=== PATIENT | female | born 2005 | race African-American/Black ===

== ENCOUNTER 2023-03-06 10:55 | Outpatient (CLI) | payer OTHER, SELFPAY ==
--- NOTE | 2023-03-06 11:32 | ECG_ITS ---
Measurements Intervals [place] Rate: 50 P: 38 AK: 176 QRS: 59 QRSD: 86 T: 39 QT: 436 QTc: 400 Interpretive Statements SINUS BRADYCARDIA WITH SINUS ARRHYTHMIA POSSIBLE RIGHT VENTRICULAR CONDUCTION DELAY [RSR (QR) IN V1/V2] NO PREVIOUS ECG AVAILABLE FOR COMPARISON Electronically Signed On 03-06-2023 11:52:20 CDT by Amanda Milian M.D.
== END 2023-03-06 10:56 | disposition home or self-care (01) ==
DX: R00.2 Palpitations (principal); R00.1 Bradycardia, unspecified; R55 Syncope and collapse
CPT/HCPCS: 93005

== ENCOUNTER 2023-10-14 01:55 | Day surgery (SDC) | payer OTHER, SELFPAY ==
[2023-10-10 12:00] VITALS: BMI 27.6
--- NOTE | 2023-10-10 12:04 | PC.NURSE ---
Report to the Outpatient Waiting Room, entrance under the green pavilion located off [facility], at time 0730 on date 10/14/23. Planned Procedure Time: 0930. Time changes happen often and if your time is changed the preop area will call you the afternoon before. - You and your visitor will be asked to self-screen and do not enter if you have any COVID symptoms. - A mask is optional within the hospital at this time. Patients may have clear liquids (water, carbonated beverages, clear teas, apple juice) until 3 hours prior to surgery with a maximum of 20 ounces. - No food from midnight until time of surgery Take the following medications with a SIP of water the morning of surgery: N/A DO NOT STOP ANY OF YOUR OTHER PRESCRIPTION MEDICATIONS PRIOR TO SURGERY ?EXCEPT THE FOLLOWING Medications to discontinue per physician: N/A Date to take last dose: N/A Please no make-up, nail croatian, hairspray, perfume, deodorant, or body powder the day of surgery. No jewelry (including any body piercings) or valuables the day of surgery, leave them at home. Please take a shower or bath the night before, or the morning of, surgery with an antibacterial soap. Wear comfortable, loose fitting clothing. - Jewelry must be removed prior to entering the operating room. Rings and piercings that are not removed may be cut off. - The hospital will not accept responsibility for valuables. - Please leave all valuables, including medications, at home the day of surgery. If you are going home after surgery, a licensed screw driver operator must drive you home. - NO public transportation without another adult if you receive anesthesia. - We recommend that an adult stay with you for 24 hours following discharge. - We also recommend that you do not drive, make important decision, drink alcoholic beverages, or take any drugs that were not prescribed by your health care provider for at least 24 hours after your discharge time. Follow any additional instructions given to you from your surgeon. If you or anyone in your household have experienced Covid symptoms in the past week, please notify your surgeon or the nurse liaison at the phone number below for possible testing. Telephone instructions given to KATI LOREDO and asked if any additional questions and then verbalized understanding. Patient advised to call surgeon office or pre surgery nurse liaison [phone] if any additional questions.
[2023-10-14] VITALS (10 sets, daily range): BP systolic 101–119; BP diastolic 62–86; PULSE 41–55; RESP 14–16; TEMP 36.2–36.5; O2SAT 99–100; BMI 27.6
--- NOTE | 2023-10-14 08:18 | WPDANESEPPF ---
Anes - Initial Pre Proc Eval Procedure: Operation Date: 10/14/23 09:30 Proposed Procedures p Labiaplasty - Jensen Day MD Date/Time: 10/14/23 08:18 Surgeon: Jensen Day MD Pre Op Diagnosis: Vulvar Cyst Patient Data Age: 18 Gender: F Height: 1.83 m Weight: 92.55 kg Last Vital Signs Temp 97.7 F 10/14/23 08:11 Pulse 55 L 10/14/23 08:11 Resp 16 10/14/23 08:11 BP 114/62 10/14/23 08:11 Pulse Ox 100 10/14/23 08:11 O2 Del Method Room Air 10/14/23 08:11 Allergies Allergy/AdvReac Type Severity Reaction Status Date / Time No Known Allergies Allergy Verified 10/14/23 08:09 Home Medications Medication Instructions Recorded Confirmed Type No Home Medications 10/10/23 10/14/23 History Patient hx anesthesia problems: none Family hx anesthesia problems: none Results Review: All pre-operative results and documents have been reviewed as part of the pre-operative evaluation. [facility] Social History Social History Smoking status: Current some day smoker Alcohol use details: VERY RARE Substance use: never Substance use type: does not use Living arrangements: alone Spiritual care concerns: No Anes - Eval Final PreProcedure Day of Procedure 10/14/23 08:18 Patient weight: obese Airway: Mallampati scale class II ASA classification: II Anesthesia type and monitoring: general LMA and standard monitoring Results Review: All pre-operative results and documents have been reviewed as part of the pre-operative evaluation. Informed Consent: The patient's anesthetic plan and its attendant risks and benefits were discussed with the patient/family/POA. Questions were solicited and answers provided to the satisfaction of the patient/family/POA.
--- NOTE | 2023-10-14 09:29 | PM.IMHP ---
H&P: HPI History of Present Illness Date/Time: 10/14/23 09:29 Chief Complaint: R labial cyst Narrative: Patient is a 18 year old G1 who presents for recurrent R labial cyst. Patient reports cyst first appeared in February however resolved on its own. It reappeared in May and became larger and more uncomfortable. She originally denies bleeding or drainage from the cyst. It was significantly impacting her normal daily activities and ability to exercise. She underwent in office incision and drainage x2, however had reaccumulation quickly after each. Discussed expectant management vs cyst excision and partial vulvectomy to reduce excess skin including r/b of each, and patient would like to proceed with labial/vulvar cyst excision and partial vulvectomy. No fevers, chills, abdominal pain, or dysuria. Review of Systems Review of Systems: All systems reviewed & are unremarkable except as noted in HPI and below [facility] Social History Social History Smoking status: Current some day smoker Alcohol use details: VERY RARE Substance use: never Substance use type: does not use Living arrangements: alone Spiritual care concerns: No Meds Home Medications and Allergies Home Medications Medication Instructions Recorded Confirmed Type No Home Medications 10/10/23 10/14/23 History Allergies Allergy/AdvReac Type Severity Reaction Status Date / Time No Known Allergies Allergy Verified 10/14/23 08:09 Vital Signs Vital Signs - 24 hr 10/14/23 08:11 Temperature 97.7 F Pulse Rate 55 L Respiratory Rate 16 Blood Pressure 114/62 Pulse Oximetry 100 Oxygen Delivery Room Air Exam Const: General: comfortable and no acute distress Eyes: General: appearance normal, both eyes and all related structures Neck: Neck: supple Resp: Effort & Inspection: normal respiratory effort Cardio: Rate: regular rate : Other: large R labial cyst seen in office, reaccumulated s/p office I&D 4 days prior; no erythema Skin: General skin exam: normal color Extrem: General: normal to inspection Psych: Mental Status: mental status grossly normal Assessment and Plan Assessment and plan (1) Vulvar cyst: Code(s): N90.7 - Vulvar cyst Status: Acute Assessment and Plan: - failed management wiht I&D x2 - significantly impacting daily activities and exercising - r/b of expectant management vs surgical management with vulvar cyst excision and partial vulvectomy discussed; patient would like to proceed with surgery at this time. - r/b rediscussed with patient prior to surgery; patient agrees to proceed - discussed main goal of surgery is improving functional status; cosmesis is secondary outcome; discussed some unavoidable asymmetry between vulvar sides; patient voices understanding
--- NOTE | 2023-10-14 09:35 | WPDHPUPDATE1 ---
History and Physical Update Update Date/Time: 10/14/23 09:35 History and Physical has been reviewed, including an updated exam of the patient. There are NO changes in the patient's condition. Risks, benefits, and alternatives have been discussed and questions answered. Patient agrees to proceed with procedure.
[2023-10-14] MEDS: ceFAZolin 2 GM/D5W 50 ML 2 GM/50 ML BAG IVPB (09:43)
[2023-10-14] MEDS: LIDOCAINE HCL 1% LOCAL INJ 10 ML VIAL INFILTRATE (10:15)
[2023-10-14] MEDS: BACITRACIN OINTMENT 15 GM TUBE 1 APPLIC TOPICAL (11:14)
[2023-10-14] MEDS: LACTATED RINGERS 1,000 ML 30 ML IV CONT ×2 (11:29)
[2023-10-14] MEDS: fentaNYL CITRATE INJ (*CRX) 100 MCG/2 ML VIAL 25 MCG IV PUSH ×4 (11:58→12:07)
[2023-10-14] MEDS: oxyCODONE HCL (*CRX) 5 MG TAB IR PO (12:55)
[2023-10-14] MEDS: ACETAMINOPHEN 500 MG TABLET 1000 MG PO (13:45)
[2023-10-14] MEDS: KETOROLAC 30 MG/ML VIAL (*BKC) IV PUSH (13:45)
--- NOTE | 2023-10-17 14:26 | P.OP_ITS ---
Procedure Note - Detailed Date of Procedure 10/17/23 Pre-op Diagnosis Vulvar Cyst Post-op Diagnosis Same Procedure Performed vulvar cyst excision and partial vulvectomy Surgeon Jensen Day MD Anesthesia MAC Indications recurrent vulvar cyst s/p I&D x2 Findings right bartholin gland cyst with tract up into space between labia minora and majora Description of Procedure Patient was brought to the operating room with IV fluids running and received MAC anesthesia without issue. She was placed in dorsal lithotomy position and prepped and draped in the usual fashion. EUA performed demonstrating above findings. The right side of the vulva was incised over the inflamed cyst wall using a scalpel. Using Pean clamps and Metzembaum scissors, the cyst wall was excised from the normal vulvar tissue. The prior I&D site was expanded using the scalpel to aid in removal of cyst wall. Bovie cautery was used for hemostasis as needed. Once the cyst wall was completely removed, a wedge excision of the right vulva was performed to restore normal anatomy and remove excess skin that was expanded from the cyst swelling. The deep space of the vulvar was closed with 4- 0 Vicryl in an interrupted fashion. Hemostasis was again confirmed. The superficial layers of the wedge resection were then closed using 4-0 vicryl in a running subcuticular fashion, assuring hemostasis. The extended prior I&D site was then closed with 4-0 vicryl in a running subcuticular fashion as well. At the end of the procedure, the incisions were injected with 1% lidocaine plain. Antibacterial ointment was placed over the incisions and a sanitary pad was then placed. Sponge and instrument counts were correct. Patient tolerated the procedure well. Estimated Blood Loss 50 Pathology Yes Complications No immediate complications Condition Stable Disposition Same day
== END 2023-10-14 14:10 | disposition home or self-care (01) ==
PROVIDERS: Visit Provider Obstetrics & Gynecology
PROC: (CPT 56620; principal; 2023-10-14 09:30)
DX: N90.7 Vulvar cyst (principal); F17.210 Nicotine dependence, cigarettes, uncomplicated; E66.9 Obesity, unspecified; Z68.27 Body mass index [BMI] 27.0-27.9, adult
CPT/HCPCS: 56620; 11423; 88305; A9270; J0690; J1100; J1885; J2405; J2704; J3010; J7120